=== PATIENT | male | born 1990 | race Caucasian/White ===

== ENCOUNTER 2019-06-09 22:33 | Emergency (ER) | payer SELFPAY ==
[2019-06-10 01:04] LABS: ABS Basophils 0.1 10^3/ul (0-0.2); ABS Eosinophils 0.3 10^3/ul (0-0.6); ABS Lymphocytes 1.7 10^3/ul (1.0-4.8); ABS Monocytes 0.9 10^3/ul (0-0.8); ABS Neutrophils 5.7 10^3/ul (1.5-7.7); Hematocrit 50 % (42-52); Hemoglobin 17.1 g/dL (14.0-18.0); Lymphocyte % 19.4 %; Mean Corpuscular HGB Conc 34 g/dL (31-36); Mean Corpuscular Hemoglobin 31 pg (27-31); Mean Corpuscular Volume 91 fL (80-94); Mean Platelet Volume 9.1 fL (7.4-10.4); Nucleated Red Blood Cells % 0.1; Platelet Count 199 10^3/uL (150-450); Red Blood Count 5.52 10^6 /uL (4.18-5.48); Red Cell Distribution Width 14 % (10-15); White Blood Count 8.5 10^3/uL (3.5-10.8)
[2019-06-10] MEDS: NS 0.9% 1000 ML** 1,000 ML IV ONE (01:09)
[2019-06-10] MEDS: Ondansetron INJ* 2 MG/ML VIAL IV ONE (01:09)
[2019-06-10] MEDS: Ketorolac INJ* 30 MG/ML 1 ML VIAL IV PUSH ONE (01:09)
[2019-06-10 01:22] LABS: Albumin 4.6 g/dL (3.2-5.2); Albumin/Globulin Ratio 1.4 (1-3); BUN/Creatinine Ratio 12.5 (8-20); Calcium 9.7 mg/dL (8.6-10.3); EGFR African American 114.6 (>60); EGFR Non-African American 94.7 (>60); Globulin 3.2 g/dL (2-4); Total Bilirubin 0.6 mg/dL (0.2-1.0); Total Protein 7.8 g/dL (6.4-8.9)
--- NOTE | 2019-06-10 01:22 | ED ---
Abdominal Pain/Male - HPI Summary HPI Summary: This pt is a 28 Y/O M presenting to [facility] with a CC of abdominal pain that started at 06/08/19. He states that he currently has flank pain, N/V/D, CP, and a headache associated with the abdominal pain. He states that his pain is rated a 7/10 in severity. He states that he is unable to keep liquids or food down successfully and that eating or drinking usually increase his symptoms. He denies a known fever or cough and states that he has tried some home remedies without good affect. He has no pertinent PMHx. - History of Current Complaint Chief Complaint: EDFluSymptoms Stated Complaint: VOMITTING,DIARRHEA,ABDOMINAL PAIN,HEADACHES PER PT Time Seen by Provider: 06/10/19 00:40 Hx Obtained From: Patient Onset/Duration: Sudden Onset, Lasting Days - 2, Still Present Timing: Constant Severity Initially: Moderate Severity Currently: Moderate Pain Intensity: 7 Pain Scale Used: 0-10 Numeric Location: Diffuse Radiates: Yes Radiates to: Flank Aggravating Factor(s): Food, Other: - liquids Alleviating Factor(s): Nothing Associated Signs And Symptoms: Positive: Chest Pain, Back Pain - flanks, Decreased Appetite, Nausea, Vomiting, Diarrhea, Other - headache. Negative: Fever, Cough, Urinary Symptoms - Allergies/Home Medications Allergies/Adverse Reactions: Allergies Allergy/AdvReac Type Severity Reaction Status Date / Time bee venom protein (honey bee) Allergy Swelling Verified 06/09/19 22:40 cinnamon Allergy Itching Verified 06/09/19 22:40 coconut Allergy Itching Verified 06/09/19 22:40 PMH/Surg Hx/FS Hx/Imm Hx Previously Healthy: Yes Endocrine/Hematology History: Denies: Hx Diabetes Cardiovascular History: Denies: Hx Hypertension Respiratory History: Reports: Hx Asthma - Cancer History Hx Chemotherapy: No Hx Radiation Therapy: No - Surgical History Surgical History: Yes Surgery Procedure, Year, and Place: dental surgery. tonsillectomy - Immunization History Immunizations Up to Date: Yes Infectious Disease History: No Infectious Disease History: Denies: Traveled Outside the [place] in Last 30 Days - Family History Known Family History: Negative: Hypertension, Diabetes - Social History Occupation: Employed Full-time Lives: Alone Alcohol Use: Occasionally Hx Substance Use: Yes Substance Use Type: Reports: Marijuana Hx Tobacco Use: Yes Smoking Status (MU): Current Every Day Smoker Household Exposure: Yes Review of Systems - ROS Summary Review of Systems Summary: Home Medications Medication Instructions Recorded Confirmed Type Cyclobenzaprine TAB* [Flexeril 10 10 mg PO TID PRN #21 tab 03/10/19 Rx MG TAB*] Albuterol Sulfate [Proair 90 mcg IH Q4HR #1 aer.pw.bas 06/10/19 Rx Digihaler] Negative: Fever Positive: Chest Pain Negative: Cough Positive: Abdominal Pain - diffuse , Vomiting, Diarrhea, Nausea Positive: flank pain - radiated from abdominal region Negative: Headache All Other Systems Reviewed And Are Negative: Yes Physical Exam - Summary Physical Exam Summary: General: Well-developed, Well-nourished male that appears in mild discomfort HEENT: Normocephalic, Atraumatic. Eyes: Conjuctiva normal, PERRL. Ears: TMs within normal limits. Nares: (-) discharge, (-) erythema. Oropharynx: Clear, mucous membranes moist, (-) exudates. Neck: Soft, FROM, (-) lymphadenopathy, (-) thyromegaly, (-) JVD. Cardiovascular: Normal sinus rhythm, (-) murmur. Lungs: Clear to auscultation bilaterally (-) wheezes, (-) rales, (-) rhonchi. Abdomen: Soft, Mild diffuse abdominal pain, worse in the RUQ, non-distended, (- ) organomegaly, normal bowel sounds. Back: (-) CVA tenderness Extremities: No edema. Skin: Warm, dry, (-) rash. Neuro: Alert and oriented x3, no focal deficits. Psychiatric: Mood normal, affect normal. Triage Information Reviewed: Yes Vital Signs On Initial Exam: Initial Vitals Temp Pulse Resp BP Pulse Ox 98.0 F 72 16 142/89 97 06/09/19 22:35 06/09/19 22:35 06/09/19 22:35 06/09/19 22:35 06/09/19 22:35 Vital Signs Reviewed: Yes Procedures - Sedation Patient Received Moderate/Deep Sedation with Procedure: No Diagnostics - Vital Signs Vital Signs Temp Pulse Resp BP Pulse Ox 06/10/19 00:08 97.9 F 06/10/19 00:00 62 97 06/09/19 23:55 60 137/84 98 06/09/19 23:54 58 98 06/09/19 22:35 98.0 F 72 16 142/89 97 - Laboratory Lab Results: Lab Results 06/10/19 Range/Units 00:56 WBC 8.5 (3.5-10.8) 10^3/uL RBC 5.52 H (4.18-5.48) 10^6 /uL Hgb 17.1 (14.0-18.0) g/dL Hct 50 (42-52) % MCV 91 (80-94) fL MCH 31 (27-31) pg MCHC 34 (31-36) g/dL RDW 14 (10-15) % Plt Count 199 (150-450) 10^3/uL MPV 9.1 (7.4-10.4) fL Neut % (Auto) 66.9 % Lymph % (Auto) 19.4 % Wagoner % (Auto) 10.0 % Eos % (Auto) 3.0 % Baso % (Auto) 0.7 % Absolute Neuts (auto) 5.7 (1.5-7.7) 10^3/ul Absolute Lymphs (auto) 1.7 (1.0-4.8) 10^3/ul Absolute Monos (auto) 0.9 H (0-0.8) 10^3/ul Absolute Eos (auto) 0.3 (0-0.6) 10^3/ul Absolute Basos (auto) 0.1 (0-0.2) 10^3/ul Absolute Nucleated RBC 0.0 10^3/ul Nucleated RBC % 0.1 Result Diagrams: 06/10/19 00:56 06/10/19 00:56 Lab Statement: Any lab studies that have been ordered have been reviewed, and results considered in the medical decision making process. - Radiology CXR Radiology Interpretation Completed By: ED Physician Summary of Radiographic Findings: No acute processes. No evidence for infiltrate or pleural effusion. pending offical review. Re-Evaluation - Re-Evaluation First Eval Re-Evaluation Time: 03:59 Change: Improved Comment: I have discussed results with the patient and his abdominal pain and N/ V is resolved. Discussed symptoms that warrant immediate return to ED Abdominal Pain Male Course/Dx - Course Course Of Treatment: 28-year-old male with vomiting and diarrhea. Dehydration. Patient given IV fluids, Protonix, Zofran and Toradol in the emergency room. Feeling much better at this time. Workup demonstrates no significant abnormality. Patient discharged home at this time. Advised sips of clear fluids and rest. Follow-up with PCP. Follow-up sooner for any worsening symptoms. - Diagnoses Provider Diagnoses: Tobacco use, Viral syndrome Discharge ED - Sign-Out/Discharge Documenting (check all that apply): Patient Departure - discharge - Discharge Plan Condition: Stable Disposition: HOME Prescriptions: Albuterol Sulfate [Proair Digihaler] 90 mcg IH Q4HR #1 aer.pw.bas Patient Education Materials: Viral Syndrome (ED) Referrals: [facility] [Outside] - 2 Days Additional Instructions: PLEASE RETURN TO THE EMERGENCY DEPARTMENT FOR ANY NEW OR WORSENING SYMPTOMS. FOLLOW UP WITH THE [facility] IN 1-3 DAYS TO BE DIRECTED TOWARDS A PRIMARY CARE PHYSICIAN. - Billing Disposition and Condition Condition: STABLE Disposition: Home - Attestation Statements Document Initiated by Scribe: Yes Documenting Scribe: Enrrique Alonso Provider For Whom Clark is Documenting (Include Credential): Angie Maldonado MD Scribe Attestation: Enrrique Evans, scribed for Angie Maldonado MD on 06/10/19 at 0416. Scribe Documentation Reviewed: Yes Provider Attestation: The documentation as recorded by the Enrrique corado accurately reflects the service I personally performed and the decisions made by , Angie Maldonado MD Status of Scribe Document: Viewed
[2019-06-10] MEDS: Pantoprazole IV* 40 MG IV ONE (02:14)
[2019-06-10 03:06] LABS: Urine Appearance Cloudy; Urine Bilirubin Negative (Negative); Urine Blood Negative (Negative); Urine Color Amber; Urine Glucose Negative (Negative); Urine Ketones 1+ (Negative); Urine Nitrite Negative (Negative); Urine Protein 1+(30 mg/dL) (Negative); Urine Specific Gravity 1.032 (1.010-1.030); Urine Urobilinogen Negative (Negative)
[2019-06-10 03:09] LABS: Urine Bacteria Absent (Absent); Urine Red Blood Cell Absent (Absent); Urine White Blood Cell Absent (Absent)
[2019-06-10 04:09] VITALS: BP 124/82
== END 2019-06-10 04:02 | disposition home or self-care (01) ==
LOC: ED 22:33
DX: B34.9 Viral infection, unspecified (principal); F17.200 Nicotine dependence, unspecified, uncomplicated
CPT/HCPCS: 36415; 71045; 80053; 81003; 81015; 83605; 85025; 96361; 96374; 96375; 99283; J1885; J2405

== ENCOUNTER 2019-06-15 13:57 | Emergency (ER) | payer SELFPAY ==
--- NOTE | 2019-06-15 15:51 | ED ---
Nausea/Vomiting/Diarrhea HPI - HPI Summary HPI Summary: Patient is a 28-year-old male who presents emergency department for vomiting and diarrhea. Patient's in the ER for complain about 5 days ago. Patient states his symptoms and starting to improve until today when vomiting and diarrhea started again. Patient denies passing blood in vomit or stools. He notes upper abdominal cramping with vomiting. Patient denies fever, chills, cough, urinary symptoms. Patient denies any recent travel, antibiotic use. Patient notes that family member was sick with similar symptoms. Patient otherwise denies past medical history. Symptoms are [id number] in severity. No current modifying factors. Patient states he's been unable to keep down any water today. - History of Current Complaint Chief Complaint: EDNauseaVomitDiarrh Stated Complaint: VOMITING/DIARREA PER PT Time Seen by Provider: 06/15/19 15:49 Hx Obtained From: Patient Pain Intensity: 7 - Allergies/Home Medications Allergies/Adverse Reactions: Allergies Allergy/AdvReac Type Severity Reaction Status Date / Time bee venom protein (honey bee) Allergy Swelling Verified 06/15/19 14:04 cinnamon Allergy Itching Verified 06/15/19 14:04 coconut Allergy Itching Verified 06/15/19 14:04 PMH/Surg Hx/FS Hx/Imm Hx Previously Healthy: Yes Endocrine/Hematology History: Denies: Hx Diabetes Cardiovascular History: Denies: Hx Hypertension Respiratory History: Reports: Hx Asthma - Cancer History Hx Chemotherapy: No Hx Radiation Therapy: No - Surgical History Surgery Procedure, Year, and Place: dental surgery. tonsillectomy Infectious Disease History: No Infectious Disease History: Denies: Traveled Outside the [place] in Last 30 Days - Family History Known Family History: Positive: Non-Contributory Negative: Hypertension, Diabetes - Social History Occupation: Unemployed Lives: With Family Alcohol Use: Occasionally Hx Substance Use: Yes Substance Use Type: Reports: Marijuana Hx Tobacco Use: Yes Smoking Status (MU): Current Every Day Smoker Review of Systems Constitutional: Negative Negative: Fever Cardiovascular: Negative Respiratory: Negative Positive: Abdominal Pain, Vomiting, Diarrhea, Nausea Genitourinary: Negative Skin: Negative Neurological: Negative All Other Systems Reviewed And Are Negative: Yes Physical Exam Triage Information Reviewed: Yes Vital Signs On Initial Exam: Initial Vitals Temp Pulse Resp BP Pulse Ox 96.5 F 71 16 131/84 96 06/15/19 14:00 06/15/19 14:00 06/15/19 14:00 06/15/19 14:00 06/15/19 14:00 Vital Signs Reviewed: Yes Appearance: Positive: Well-Appearing - Pt. sitting up in bed in NAD. Skin: Positive: Warm, Dry Head/Face: Positive: Normal Head/Face Inspection Eyes: Positive: Normal, EOMI Neck: Positive: Supple Respiratory/Lung Sounds: Positive: Clear to Auscultation, Breath Sounds Present Cardiovascular: Positive: Normal, RRR Abdomen Description: Positive: Other: - Abd. is soft with minimal tenderness in all quadrants. No rebound or guarding. Neurological: Positive: Normal, CN Intact II-III Psychiatric: Positive: Affect/Mood Appropriate Procedures - Sedation Patient Received Moderate/Deep Sedation with Procedure: No Diagnostics - Vital Signs Vital Signs Temp Pulse Resp BP Pulse Ox 06/15/19 14:00 96.5 F 71 16 131/84 96 - Laboratory Result Diagrams: 06/15/19 16:42 06/15/19 16:42 Lab Statement: Any lab studies that have been ordered have been reviewed, and results considered in the medical decision making process. Naus/Vom/Diarrhea Course/Dx - Course Course Of Treatment: Pt. presenting with ongoing V/D. Benign abd. exam. Afebrile with stable VS. Pt. given iv fluids and zofran. Basic labs unremarkable with normal CBC and CRP. On re-exam pt. feeling better and tolerating POs. Suspect viral etiology. Zofran rx. Clear liquid diet x 24 hours. To f.u with the [facility] if sxs persist. Will return to er if sxs change or worsen. Pt. understands and agrees with plan. - Differential Dx/Diagnosis Differential Diagnoses - Male: Ulcerative Colitis/Crohn's Disease, Gastroenteritis (Viral), Gastroenteritis (Bacterial), Vomiting, Diarrhea, Dehydration Provider Diagnosis: Gastroenteritis Condition At Discharge: Improved Discharge ED - Sign-Out/Discharge Documenting (check all that apply): Patient Departure - Discharge Plan Condition: Improved Disposition: HOME Prescriptions: Ondansetron TAB* [Zofran 4 MG Tab*] 4 mg PO Q6H PRN #12 tab PRN Reason: Nausea Patient Education Materials: Gastroenteritis (ED) Referrals: [facility] [Outside] Additional Instructions: Follow up with the [facility] in 2-3 days Zofran as directed Clear liquid diet x 24 hours Increase fluids Return to ER if symptoms change or worsen - Billing Disposition and Condition Condition: IMPROVED Disposition: Home
[2019-06-15] MEDS ORDERED: NS 0.9% 1000 ML** 1,000 ML IV ONE (16:07)
[2019-06-15] MEDS ORDERED: Ondansetron INJ* 2 MG/ML VIAL IV ONE (16:07)
[2019-06-15 16:52] LABS: ABS Eosinophils 0.2 10^3/ul (0-0.6); ABS Lymphocytes 1.5 10^3/ul (1.0-4.8); ABS Monocytes 0.7 10^3/ul (0-0.8); ABS Neutrophils 4.4 10^3/ul (1.5-7.7); Eosinophil % 2.3 %; Hematocrit 49 % (42-52); Hemoglobin 16.9 g/dL (14.0-18.0); Lymphocyte % 22.3 %; Mean Corpuscular HGB Conc 34 g/dL (31-36); Mean Corpuscular Hemoglobin 31 pg (27-31); Mean Corpuscular Volume 92 fL (80-94); Mean Platelet Volume 9.3 fL (7.4-10.4); Nucleated Red Blood Cells % 0.3; Platelet Count 192 10^3/uL (150-450); Red Blood Count 5.37 10^6 /uL (4.18-5.48); Red Cell Distribution Width 14 % (10-15); White Blood Count 6.8 10^3/uL (3.5-10.8)
[2019-06-15 17:17] LABS: Albumin 4.5 g/dL (3.2-5.2); Potassium 4.3 mmol/L (3.5-5.0); Total Bilirubin 0.7 mg/dL (0.2-1.0)
[2019-06-15 17:23] LABS: Albumin/Globulin Ratio 1.5 (1-3); BUN/Creatinine Ratio 9.5 (8-20); C Reactive Protein 3.54 mg/L (<8.01); EGFR Non-African American 95.8 (>60); Globulin 3.1 g/dL (2-4); Total Protein 7.6 g/dL (6.4-8.9)
[2019-06-15 18:31] VITALS: BP 136/80
== END 2019-06-15 18:14 | disposition home or self-care (01) ==
LOC: ED 13:57
DX: K52.9 Noninfective gastroenteritis and colitis, unspecified (principal); J45.909 Unspecified asthma, uncomplicated; F17.200 Nicotine dependence, unspecified, uncomplicated
CPT/HCPCS: 36415; 80053; 83690; 85025; 86140; 96361; 96374; 99283; J2405